=== PATIENT | male | born 2005 | race Caucasian/White ===

== ENCOUNTER 2025-05-31 07:29 | Day surgery (SDC) | payer BC, SELFPAY ==
[2025-05-31 07:53] VITALS: BP 126/91; PULSE 62; RESP 16; TEMP 36.8; O2SAT 99; BMI 22.9
[2025-05-31] MEDS: SODIUM CHLORIDE 0.9 % (FLUSH) 10 ML SYRINGE IVF (08:05)
[2025-05-31] MEDS: LACTATED RINGERS 1000 ML 1,000 ML 100 ML IV (08:05)
--- NOTE | 2025-05-31 08:20 | P.ANES_ITS ---
Anesthesia Charges Start Date/Time Anesthesia Start Date: 05/31/25 Anesthesia Start Time: 08:35 Stop Date/Time Anesthesia Stop Date: 05/31/25 Anesthesia Stop Time: 10:00 Coding CPT Codes CPT Codes: ANESTH LOWER LEG BONE SURG - 58237 ([id number]) P2 - PATIENT W/MILD SYST DISEASE, QK - OFFICE MANAGER 2-4 CNCRNT ANES PROC, QX - DENTAL CERAMIST ASSISTANT SVC W/ MD MED DIRECTION
--- NOTE | 2025-05-31 08:20 | W.ANESCHARGE ---
Anesthesia Charges Start Date/Time Anesthesia Start Date: 05/31/25 Anesthesia Start Time: 08:35 Stop Date/Time Anesthesia Stop Date: 05/31/25 Anesthesia Stop Time: 10:00 Coding CPT Codes CPT Codes: ANESTH LOWER LEG BONE SURG - 45860 ([id number]) P2 - PATIENT W/MILD SYST DISEASE, QK - PARTITION SETTER 2-4 CNCRNT ANES PROC, QX - PAINTER SHIPYARD SVC W/ MD MED DIRECTION
--- NOTE | 2025-05-31 08:28 | W.PM.PODPROC ---
Date of Procedure: 05/31/25 Time Seen by Provider: 08:28 Surgeon: Ann-Marie Gauthier DPM Co-Surgeon: Jignesh Echeverria DPM Pre-op Diagnosis: 1. Exostosis left 1st metatarsal 2. Exostosis left medial cuneiform Post-op Diagnosis: 1. Exostosis left 1st metatarsal 2. Exostosis left medial cuneiform 3. Ganglion cyst left foot Type of Procedure: 1. Exostectomy left 1st metatarsal 2. Exostectomy left medial cuneiform 3. Ganglion cyst excision left foot Procedure Description: The patient was identified before being brought into the operating room using their name and date of as identifiers. The intended surgical care plan was again reviewed in detail with the patient as well as the rationale for the surgery, the most common risks, complications, and the expected recovery course. The patient was allowed to ask questions which were answered to the best of our ability. The patient ultimately voiced no questions or concerns and agreed to proceed forward with the surgery as planned. Under mild sedation, the patient was brought from the pre-operative holding area to the operating room and placed on the operating table in a supine position. A time-out and briefing were performed per operating room protocol to confirm the correct patient, procedure, and location. A well-padded pneumatic tourniquet was then placed on the operative ankle. The operative lower extremity was then scrubbed, prepped, and draped in the normal sterile fashion. The operative lower extremity was then elevated for exsanguination and the tourniquet was inflated to 250 mmHg. Attention was directed to the dorsal aspect of the left midfoot. A palpable prominence was over the dorsal 1st tarsometatarsal joint. The dorsalis pedis pulse was identified and marked preoperatively and the incision was placed medial to this. A longitudinal linear incision was made over the high point of the exostosis. Dissection was carried deep, taking care to identify and retract all vital neural and vascular structures. Dissection was carried down to the level of the deep fascia. The deep fascia was incised and retracted for re approximation later. It was noted that the superficial peroneal nerve had branched in 3 places and was running directly dorsal to the exostosis. The nerves were dissected free carefully and was retracted, and tissue was mobilized for adequate exposure of the exostosis. A mobile, fluid-filled mass was encountered along the dorsal EHL tendon sheath. Metzenbaum scissors were utilized to bluntly dissect the mass from the underlying deep tissues. There were no incorporations of tendon or neurovascular structures into the mass. The mass was removed and passed off the field in total, measuring 3 centimeters x 3 centimeters in diameter. The area once occupied by the mass was thoroughly inspected for any remnants and none were found. A saw and osteotome was used to resect the exostosis along the dorsal 1st metatarsal and 1st cuneiform. Fine debridement was then carried out using a rotary bur and rasp. This was noted to provide smooth margins between the articulating bone. This site was then copiously irrigated with normal saline solution. The superficial nerve branches were then injected with 0.8cc of Dex 4mg. The deep fascia was closed with Vicryl. Skin was re approximated with Nylon in a horizontal mattress type suture technique. A postoperative dressing of zip-its, xeroform, fluff sponges, webril, Kerlix and an patrick bandage was applied to the patient's operative lower extremity. The patient appeared to tolerate both the procedure and anesthesia well. The patient was transferred from the operating room to the post-anesthesia care unit with vital signs stable and vascular status intact to the operative lower extremity. All sponge and instrument counts were correct after the surgery as well as prior to the closure of deep tissue and skin. Anesthesia: MAC and local Hemostasis: ankle (48 min) Estimated blood loss (mL): 10 Provider Operated C-arm: mini c was used and operated for surgical purposes, there was a total of 3 images taken and a total of 5 sec of fluoro time Specimens: none sent Disposition: same day
[2025-05-31 09:57] VITALS: BP 108/72; PULSE 55; RESP 16; TEMP 36.4; O2SAT 99
--- NOTE | 2025-05-31 10:04 | P.ANES_ITS ---
Anesthesia Charges Start Date/Time Anesthesia Start Date: 05/31/25 Anesthesia Start Time: 08:35 Stop Date/Time Anesthesia Stop Date: 05/31/25 Anesthesia Stop Time: 10:00 Coding CPT Codes CPT Codes: ANESTH LOWER LEG BONE SURG - 26467 ([id number]) P2 - PATIENT W/MILD SYST DISEASE, QK - PLASTICS FABRICATOR 2-4 CNCRNT ANES PROC, QX - SENIOR MEDICAL TECHNOLOGIST SVC W/ MD MED DIRECTION
--- NOTE | 2025-05-31 10:04 | W.ANESCHARGE ---
Anesthesia Charges Start Date/Time Anesthesia Start Date: 05/31/25 Anesthesia Start Time: 08:35 Stop Date/Time Anesthesia Stop Date: 05/31/25 Anesthesia Stop Time: 10:00 Coding CPT Codes CPT Codes: ANESTH LOWER LEG BONE SURG - 64017 ([id number]) P2 - PATIENT W/MILD SYST DISEASE, QK - AIRPORT TRAFFIC CONTROLLER 2-4 CNCRNT ANES PROC, QX - CHIEF SECURITY AND SAFETY OFFICER SVC W/ MD MED DIRECTION
[2025-05-31 10:15] VITALS: BP 116/76; PULSE 60; RESP 16; TEMP 36.4; O2SAT 100
[2025-05-31 10:30] VITALS: BP 133/109; PULSE 60; RESP 16; O2SAT 99
[2025-05-31 11:15] VITALS: BP 117/87; PULSE 66; RESP 16; TEMP 36.1; O2SAT 100
[2025-05-31] MEDS: HYDROCODONE-ACETAMIN 5-325 MG 1 TAB PO (11:15)
== END 2025-05-31 11:20 | disposition home or self-care (01) ==
PROVIDERS: Visit Provider Podiatrist
PROC: (CPT 28288; principal; 2025-05-31 08:45)
DX: M25.775 Osteophyte, left foot (principal); M67.472 Ganglion, left ankle and foot
CPT/HCPCS: 28122 ×2; 28090; 01480; 73620; 76000; A9270; J0690; J1100; J2405; J2704; J3010; J7120